=== PATIENT | male | born 1960 | race Caucasian/White ===

== ENCOUNTER 2023-11-28 | Inpatient (IN) | payer SELFPAY ==
[2023-11-28] VITALS (11 sets, daily range): BP systolic 111–174; BP diastolic 42–96
[~2023-11-28] VITALS: Ht 180.3 cm; Wt 95.5 kg
[~2023-11-28] MED LIST: PRED20 PO
[2023-11-28 01:44] LABS: BASOPHILS ABSOLUTE AUTO 0.06 K/mm3 (0.00-0.23); BASOPHILS PERCENT AUTO 1 % (0-2); EOSINOPHILS ABSOLUTE AUTO 0.31 K/mm3 (0.00-0.68); EOSINOPHILS PERCENT AUTO 4 % (0-6); Hematocrit 36.7 % (37.0-53.0); Hemoglobin 12.4 g/dL (13.5-17.5); IMMATURE GRAN ABSOLUTE AUTO 0.04 K/mm3 (0.00-0.10); IMMATURE GRAN PERCENT AUTO 1 % (0-1); LYMPHOCYTES ABSOLUTE AUTO 1.47 K/mm3 (0.84-5.20); LYMPHOCYTES PERCENT AUTO 18 % (21-46); MONOCYTES ABSOLUTE AUTO 0.58 K/mm3 (0.16-1.47); MONOCYTES PERCENT AUTO 7 % (4-13); Mean Corpuscular HGB Conc 33.8 g/dL (31.5-36.5); Mean Corpuscular Volume 86 fL (80-100); Mean Platelet Volume 10.4 fL (9.1-12.4); NEUTROPHILS ABSOLUTE AUTO 5.85 K/mm3 (1.96-9.15); NEUTROPHILS PERCENT AUTO 70 % (41-73); Platelet Count 270 K/mm3 (150-400); RDW Coefficient Variation 12.6 % (11.7-14.2); RDW Standard Deviation 39.8 fL (35.1-46.3); Red Blood Cell Count 4.27 M/mm3 (4.30-5.90); White Blood Cell Count 8.31 K/mm3 (4.00-11.30)
[2023-11-28 02:12] LABS: Albumin, Blood 2.9 g/dL (3.4-5.0); Albumin/Globulin Ratio 0.7 (0.8-1.8); Bilirubin, Total 0.2 mg/dL (0.1-1.0); Bun/Creatinine Ratio 25.7 (12.0-20.0); Calcium, Blood 8.6 mg/dL (8.5-10.1); Creatinine, Blood 1.01 mg/dL (0.60-1.20); Globulin, Blood 4.2 g/dL (2.2-4.0); Potassium, Blood 4.2 mmol/L (3.5-5.5); Total Protein, Blood 7.1 g/dL (6.4-8.2)
[2023-11-28 06:21] LABS: Anti-Xa UFH, PHA Monitoring <0.10 IU/mL; International Normalized Ratio 0.93; Prothrombin Time Results 9.8 Sec (9.7-11.5)
[2023-11-28] MEDS ORDERED: INSULANI SC (08:17)
--- NOTE | 2023-11-28 10:51 | NUR ---
AM NOTE this rn assumed care at 0700. beside report done. vital signs stable. tele sr 70s. spo2 >95% on room air. patient is alert and oriented x4. perrla. patient is able to make needs known and uses call light appropriately. neuro is intact. patient is indepedent in adls and calls if needing assistance. patient reports no chest pain/pressure, shortness of breath, or pain. see admit shift assessment for further detials. admit complete. md noel in room to discuss plans go angio, patient at this time wanted to think about it. after thinking patient did not want to have one. patients trop continued to be elevated. md noel and md chambers and this rn back into room to discuss risks vs benefit of having angio, what medical management would look like, and skilled nursing effects on health. patient and patient ( for a year), verbalized understanding and would like to think about it further. at this time patient and still discussing what the next step is to move forward. patient remains npo. heparin drip infusing at 15u/kg/hr 95kg.
--- NOTE | 2023-11-28 12:02 | NUR ---
ANGIO patient left for angio. heparin turned off at 1158, this rn informed pharmacy.
--- NOTE | 2023-11-28 17:49 | NUR ---
shift summary patient returned from angio around 1300, and had a right radial site with tr band in place. tr band has been fully recovered. slight oozing from site which appears to have stopped, no hematoma, bruising or pain. heparin drip continuing at 15u/kg/hr. see emar. patient has an accpeting doctor at [facility] in [place], but there is no bed available at this time. patient and patient aware. no acute changes. see previous notes. call light within reach.
--- NOTE | 2023-11-28 22:46 | NUR ---
UPDATE: THIS RN TO BEDSIDE AT APPROX 2140 TO REASSESS RIGHT RADIAL ANGIO SITE. SITE HAD PREVIOUSLY BEEN FLAT W/ MINIMAL BLEEDING, NONTENDER TO THE TOUCH & W/O ANY VISIBLE HEMATOMA FORMATION. SITE AT APPROX 2140 W/ VISIBLE HEMATOMA PRESENT. PULSES REMAIN PALPABLE, CAP REFILL REMAINS <3 SEC. MANUAL PRESSURE APPLIED TO SITE FOR 10 MINUTES BY THIS RN. SITE MEASURED, APPROX 3CM IN DIAMETER. FOLLOWING MANUAL PRESSURE, SITE HAS FLATTENED BUT REMAINS SLIGHTLY SWOLLEN & TENDER ON PALPATION. WHITE ARM BOARD APPLIED, PT REEDUCATED ON IMPORTANCE OF R WRIST IMMOBILITY. CALL PLACED TO MD EDITH STATES SHE WILL COME IN PERSON. AWAITING ORDERS AT THIS TIME. SENIOR SHIPPING CLERK UPDATED.
[2023-11-29 00:39] VITALS: BP 161/77
[2023-11-29 03:22] LABS: BASOPHILS ABSOLUTE AUTO 0.06 K/mm3 (0.00-0.23); BASOPHILS PERCENT AUTO 1 % (0-2); EOSINOPHILS ABSOLUTE AUTO 0.34 K/mm3 (0.00-0.68); EOSINOPHILS PERCENT AUTO 4 % (0-6); Hematocrit 37.4 % (37.0-53.0); Hemoglobin 12.5 g/dL (13.5-17.5); IMMATURE GRAN ABSOLUTE AUTO 0.03 K/mm3 (0.00-0.10); IMMATURE GRAN PERCENT AUTO 0 % (0-1); LYMPHOCYTES ABSOLUTE AUTO 2.88 K/mm3 (0.84-5.20); LYMPHOCYTES PERCENT AUTO 31 % (21-46); MONOCYTES ABSOLUTE AUTO 0.78 K/mm3 (0.16-1.47); MONOCYTES PERCENT AUTO 8 % (4-13); Mean Corpuscular HGB 28.7 pg (26.0-34.0); Mean Corpuscular HGB Conc 33.4 g/dL (31.5-36.5); Mean Corpuscular Volume 86 fL (80-100); Mean Platelet Volume 10.2 fL (9.1-12.4); NEUTROPHILS ABSOLUTE AUTO 5.25 K/mm3 (1.96-9.15); NEUTROPHILS PERCENT AUTO 56 % (41-73); Platelet Count 252 K/mm3 (150-400); RDW Coefficient Variation 12.7 % (11.7-14.2); RDW Standard Deviation 39.8 fL (35.1-46.3); Red Blood Cell Count 4.36 M/mm3 (4.30-5.90); White Blood Cell Count 9.34 K/mm3 (4.00-11.30)
[2023-11-29 03:33] VITALS: BP 156/83
[2023-11-29 03:39] LABS: International Normalized Ratio 0.97; Prothrombin Time Results 10.2 Sec (9.7-11.5)
[2023-11-29 03:42] LABS: Albumin, Blood 2.9 g/dL (3.4-5.0); Albumin/Globulin Ratio 0.7 (0.8-1.8); Bilirubin, Total 0.3 mg/dL (0.1-1.0); Bun/Creatinine Ratio 21.1 (12.0-20.0); Calcium, Blood 8.8 mg/dL (8.5-10.1); Creatinine, Blood 0.76 mg/dL (0.60-1.20); Globulin, Blood 4.1 g/dL (2.2-4.0); Magnesium, Blood 1.8 mg/dL (1.6-2.4); Potassium, Blood 3.7 mmol/L (3.5-5.5)
--- NOTE | 2023-11-29 05:49 | NUR ---
END OF SHIFT NOTE: PT HAS REMAINED ALERT, ORIENTED X4 OVERNIGHT. FLAT AFFECT NOTED PT EXPRESSES SOME ANXIETY SURROUNDING POTENTIAL CABG PROCEDURE. AGREEABLE W/ CARE PROVIDED. HR 60-70'S, SINUS ON TELE. SBP 110-160'S, DENIES CHEST PAIN/PRESSURE T/O NOC. SPO2 >95% ON RA. SEE PREVIOUS NOTE REGARDING R RADIAL ANGIO SITE; SITE REMAINS UNCHANGED W/ PULSES PALPABLE. ARM BOARD REMAINS INTACT. HEPARIN GTT CONTINUES INFUSING AT 15 U/KG/HR, MANAGED BY PHARMACY. PT INDEPENDENTLY REPOSITIONING SELF T/O THE NIGHT, CALLS APPROPRIATELY FOR ASSISTANCE W/ LINE MANAGEMENT NEEDED. AT BEDSIDE OVERNIGHT. NO OTHER NEEDS AT THIS TIME. CALL LIGHT IN REACH, BED IN LOWEST POSITION. WILL REPORT TO ONCOMING RN.
[2023-11-29 08:26] VITALS: BP 136/74
--- NOTE | 2023-11-29 08:30 | NUR ---
NURSING PCU DAYSHIFT: Assumed care of pt at approx 0700. A/O, pleasant, cooperative w/care. Denies any pain/discomfort at rest. R radial site w/mild bruising and improved hematoma site from previous shift, wrist board in place. Ambulates independently, assistance w/line management only. Tele in place, NSR, no c/o CP/pressure, SBP 130's prior to a.m. meds, no noted edema. L/S cta t/o, O2 sat 100% on RA, denies dyspnea, no noted cough. Abd SNT, BT+, voiding w/o difficulty per pt. PIVx2, hep gtt infusing per pharmacy dosing. No s/s of acute distress this a.m. Waiting for bed assignment from higher level of care hospital. S/O at bedside, plan of care discussed, questions answered. Pt and s/o deny any current needs/questions, awaiting rounding from PMD, cont to monitor for any changes.
[2023-11-29 15:06] VITALS: BP 150/72
--- NOTE | 2023-11-29 17:02 | NUR ---
NURSING PCU DAYSHIFT SUMMARY: Pt has done well t/o the shift. SBP 150's, no c/o CP/pressure, NSR. Pt ambulates independently w/assistance only required for line management. Heparin gtt continues to infuse as per pharmacy dosing. Education provided to pt and s/o regarding plan of care, continued wait for accepting higher level of care facility, and what to expect post procedure. warehouse operations manager at bedside to provide resources for pt and s/o. Pt denies any questions/needs at this time. Remains in good spirits, call light in reach, monitor until rpt is given to NOC RN.
[2023-11-29 19:15] VITALS: BP 118/51
--- NOTE | 2023-11-29 22:16 | NUR ---
ASSUMPTION OF CARE: PATIENT IS ALERT AND ORIENTED X 4, DENIES CHEST PAIN PRESSURE OR SOB. PATIENT HAS BEEN INFUSING HEPARIN, HEMATOMA ON ANGIO RRADIAL MUCH IMPROVED. VSS, AFEBRILE. AWAITING BED TRANSFER FOR NEEDED CABG. PATIENT IN THE ROOM. MUCH EDUCATION GIVEN ON MEDICATIONS INCLUDING HEPARIN GTT. NO CONCERNS FROM EITHER THE PATIENT OR THIS BRIM MOLDER.
[2023-11-30] VITALS (7 sets, daily range): BP systolic 112–163; BP diastolic 61–83
[2023-11-30 05:55] LABS: BASOPHILS ABSOLUTE AUTO 0.08 K/mm3 (0.00-0.23); BASOPHILS PERCENT AUTO 1 % (0-2); EOSINOPHILS ABSOLUTE AUTO 0.38 K/mm3 (0.00-0.68); EOSINOPHILS PERCENT AUTO 5 % (0-6); Hematocrit 36.4 % (37.0-53.0); Hemoglobin 12.2 g/dL (13.5-17.5); IMMATURE GRAN ABSOLUTE AUTO 0.04 K/mm3 (0.00-0.10); IMMATURE GRAN PERCENT AUTO 1 % (0-1); LYMPHOCYTES ABSOLUTE AUTO 2.73 K/mm3 (0.84-5.20); LYMPHOCYTES PERCENT AUTO 33 % (21-46); MONOCYTES ABSOLUTE AUTO 0.69 K/mm3 (0.16-1.47); MONOCYTES PERCENT AUTO 8 % (4-13); Mean Corpuscular HGB Conc 33.5 g/dL (31.5-36.5); Mean Corpuscular Volume 87 fL (80-100); Mean Platelet Volume 10.4 fL (9.1-12.4); NEUTROPHILS ABSOLUTE AUTO 4.39 K/mm3 (1.96-9.15); NEUTROPHILS PERCENT AUTO 53 % (41-73); Platelet Count 262 K/mm3 (150-400); RDW Coefficient Variation 12.7 % (11.7-14.2); RDW Standard Deviation 40.1 fL (35.1-46.3); White Blood Cell Count 8.31 K/mm3 (4.00-11.30)
--- NOTE | 2023-11-30 06:14 | NUR ---
NO CHANGES FROM ASSUMPTION OF CARE FOR THIS RN. CONDITION STABLE. IMPROVING SLOWLY. STILL AWAITING A BED FROM [facility]. NO CONCERNS AT THIS TIME VSS.
[2023-11-30 06:26] LABS: Albumin, Blood 2.7 g/dL (3.4-5.0); Albumin/Globulin Ratio 0.6 (0.8-1.8); Bilirubin, Total 0.3 mg/dL (0.1-1.0); Bun/Creatinine Ratio 17.8 (12.0-20.0); Calcium, Blood 9.1 mg/dL (8.5-10.1); Creatinine, Blood 0.84 mg/dL (0.60-1.20); Globulin, Blood 4.2 g/dL (2.2-4.0); Potassium, Blood 3.9 mmol/L (3.5-5.5); Total Protein, Blood 6.9 g/dL (6.4-8.2)
--- NOTE | 2023-11-30 08:03 | NUR ---
Received in room report from Catracho GUILLERMO. Patient awake in bed and is alert and oriented and is able to communicate all needs. He is independent in bed with positioning and comfort and is SBA when up ambulating to bathroom. He is on RA and sats >90%. is at bedside assisting with care. They are awaiting for open bed for CABG, she will need to go up in ambulance where ever he goes. Denies any needs. CBG 205 and will need coverage.
--- NOTE | 2023-11-30 08:13 | NUR ---
Patient has 20ga IV to RAC and is infusing Heparin at 15 units/kg/hr and tolerating well , he also has 18ga IV to LAC that has been flushed and SL'd.
--- NOTE | 2023-11-30 11:30 | NUR ---
Patient still awaiting transfer. He has been up with SBA and tolerates well. No significant changes. remains at bedside and he continues to be independnet with positioning and comfort. CBG 304 and coverage needed.
--- NOTE | 2023-11-30 15:30 | NUR ---
Patient remains awaiting bed for CABG. He continues on RA and sats >90%. He had been up to bathroom independent post calling appropriatly. He has no imediate needs or concerns. Dr Segal was by to see himand no new orders. No other significant changes with patient. remains at bedside until transfer.
--- NOTE | 2023-11-30 19:04 | NUR ---
No significant changes throughout shift. VS and ECG stable. He is independent with positioning and calls appropriately when getting up or needs. Remains on RA and sats >90%. Called there daughter per request and gave update on transfer.
--- NOTE | 2023-11-30 19:13 | NUR ---
Heparin continues at 15 units/kg/hr in RAC 20ga.
--- NOTE | 2023-11-30 22:12 | NUR ---
ASSUMPTION OF CARE: DENIES CHEST PAIN PRESSURE OR SOB AT REST. PATIENT HAS BEEN STILL INFUSING HEPARIN WITHOUT CHANGE. NO CONCERNS FRMO THIS RN. STILL AWAITING A BED FOR CABG
[2023-12-01 04:07] VITALS: BP 125/58
--- NOTE | 2023-12-01 06:32 | NUR ---
STILL NO CHANGES FROM ASSUMPTION OF CARE OR PREVIOUS SHIFT. DENIES HCEST PAIN PRESSURE OR SOB.
[2023-12-01 08:00] VITALS: BP 127/75
[2023-12-01 11:18] VITALS: BP 130/66
--- NOTE | 2023-12-01 11:43 | NUR ---
PT DENIES CP OR SOB, HE DID REPORT A BRIEF LT LOWER RIB PAIN WHEN YAWNING THIS MORNING WHICH ONLY LASTED A MINUTE OR TWO. HE IS ALERT AND ORIENTED X4. HE EXPRESSED A POOR UNDERSTANDING OF DIABETES, HE IS EDUCATED IN LENGTH ABOUT DIET MANAGEMENT THIS AM. PT DID EXPRESS THAT HE WOULD LIKE FOR ME TO CALL AND TALK TO HIS DAUGTHER JACK TO EASE HER MIND, I CALLED HER THERE WAS INITIALLY NO ANSWER, BUT SHE DID RETURN MY CALL AND HER QUESTIONS WERE ANSWERED. OTHERWISE NOT RATE CHANGES ON HEPARIN INFUSION AND NO UPDATES ON COBRA TRANSFER
[2023-12-01 13:57] VITALS: BP 130/66
--- NOTE | 2023-12-01 14:13 | NUR ---
REPORT CALLED TO SINDHU GUILLERMO AT [facility] WHO WILL ASSUME PT CARE UPON ARRIVAL
--- NOTE | 2023-12-01 15:42 | NUR ---
PT OTD WITH EMS CREW, HEPARIN INFUSING
== END 2023-12-01 15:02 | disposition short-term general hospital (02) | DRG 282 ==
LOC: ER → PCU 05:40
PROVIDERS: Internal Medicine; Student in an Organized Health Care Education/Training Program; ADMIT Student in an Organized Health Care Education/Training Program
PROC: B2111ZZ Fluoroscopy of Multiple Coronary Arteries using Low Osmolar Contrast (ICD-10-PCS; principal; 2023-11-28)
PROC: 4A023N7 Measurement of Cardiac Sampling and Pressure, Left Heart, Percutaneous Approach (ICD-10-PCS; 2023-11-28)
DX: I21.4 Non-ST elevation (NSTEMI) myocardial infarction (principal); I10 Essential (primary) hypertension; E11.9 Type 2 diabetes mellitus without complications; E78.5 Hyperlipidemia, unspecified; D64.9 Anemia, unspecified; F43.10 Post-traumatic stress disorder, unspecified; F41.9 Anxiety disorder, unspecified; F32.A Depression, unspecified; I25.10 Atherosclerotic heart disease of native coronary artery without angina pectoris; Z28.21 Immunization not carried out because of patient refusal
CPT/HCPCS: 36415; 71046; 76937; 80053; 82947; 83036; 83690; 83735; 83880; 84484; 85025; 85520; 85610; 93005; 93010; 93306; 93454; 96374-59; 99152; 99153; 99285-25; A9270; C1769; C1887; C1894; J1644; J1815; J2250; J3010; J7030; J7050; J7120; Q9967

== ENCOUNTER 2023-12-16 19:00 | Inpatient (IN) | payer SELFPAY ==
[~2023-12-16] VITALS: Ht 180.3 cm; Wt 99.7 kg
[~2023-12-16 19:00] MED LIST changes: +INSULANI SC
[2023-12-16] MEDS ORDERED: Aspir 8181 MG PO (19:23)
[2023-12-16] MEDS ORDERED: ATOR40TA PO (19:23)
[2023-12-16] MEDS ORDERED: PLAVIX75 MG PO (19:23)
[2023-12-16] MEDS ORDERED: METOPROLOL TART25 MG PO (19:24)
[2023-12-16] MEDS ORDERED: OXYC5 PO (19:24)
[2023-12-16] MEDS ORDERED: LOSARTAN POTASS25 M2 PO (19:24)
[2023-12-16] MEDS ORDERED: SITA25T2 PO (19:25)
[2023-12-16 19:34] LABS: BASOPHILS ABSOLUTE AUTO 0.04 K/mm3 (0.00-0.23); BASOPHILS PERCENT AUTO 0 % (0-2); EOSINOPHILS PERCENT AUTO 2 % (0-6); Hematocrit 29.8 % (37.0-53.0); Hemoglobin 9.4 g/dL (13.5-17.5); IMMATURE GRAN ABSOLUTE AUTO 0.03 K/mm3 (0.00-0.10); IMMATURE GRAN PERCENT AUTO 0 % (0-1); LYMPHOCYTES ABSOLUTE AUTO 1.09 K/mm3 (0.84-5.20); LYMPHOCYTES PERCENT AUTO 9 % (21-46); MONOCYTES ABSOLUTE AUTO 1.09 K/mm3 (0.16-1.47); MONOCYTES PERCENT AUTO 9 % (4-13); Mean Corpuscular HGB 28.1 pg (26.0-34.0); Mean Corpuscular HGB Conc 31.5 g/dL (31.5-36.5); Mean Corpuscular Volume 89 fL (80-100); Mean Platelet Volume 9.5 fL (9.1-12.4); NEUTROPHILS ABSOLUTE AUTO 10.26 K/mm3 (1.96-9.15); NEUTROPHILS PERCENT AUTO 81 % (41-73); Platelet Count 643 K/mm3 (150-400); RDW Coefficient Variation 14.5 % (11.7-14.2); RDW Standard Deviation 46.5 fL (35.1-46.3); Red Blood Cell Count 3.35 M/mm3 (4.30-5.90); White Blood Cell Count 12.71 K/mm3 (4.00-11.30)
[2023-12-16 19:50] LABS: Albumin/Globulin Ratio 0.6 (0.8-1.8); Bilirubin, Total 0.5 mg/dL (0.1-1.0); Bun/Creatinine Ratio 24.2 (12.0-20.0); Calcium, Blood 9.3 mg/dL (8.5-10.1); Creatinine, Blood 0.87 mg/dL (0.60-1.20); Globulin, Blood 4.9 g/dL (2.2-4.0); Potassium, Blood 4.5 mmol/L (3.5-5.5); Total Protein, Blood 7.9 g/dL (6.4-8.2)
[2023-12-16 20:42] LABS: Influenza A, PCR NEGATIVE (NEGATIVE); Influenza B, PCR NEGATIVE (NEGATIVE); Resp Syncytial Virus, PCR NEGATIVE (NEGATIVE); SARS-Cov-2 (COVID-19) PCR, MMC NEGATIVE (NEGATIVE)
[2023-12-16] MEDS ORDERED: Furosemide 10 MG / ML 2ML Vial IV ONE (21:00)
[2023-12-16] MEDS ORDERED: Ondansetron HCl 2 MG / ML 2ML Vial IV PRN (21:05)
[2023-12-16] MEDS ORDERED: Acetaminophen 325 MG TABLET PO PRN (21:05)
[2023-12-16] MEDS ORDERED: FLU VACC QS2023-24(6MOS UP)/PF 60 MCG/0.5 ML SYRINGE IM SCH (21:10)
[2023-12-16] MEDS ORDERED: Furosemide 10 MG/ML 4ML Vial ONE (21:11)
[2023-12-16] MEDS ORDERED: OxyCODONE HCL 5 MG TAB PO PRN (21:40)
[2023-12-16] MEDS ORDERED: Furosemide 10 MG/ML 4ML Vial IV SCH (22:00)
[2023-12-16] MEDS ORDERED: Metoprolol Tartrate 25 MG Tab PO SCH (22:00)
[2023-12-16 22:41] VITALS: BP 130/69
[2023-12-16 23:00] VITALS: BP 128/62
--- NOTE | 2023-12-16 23:29 | NUR ---
ARRIVAL TO UNIT: AFTER RECEIVING REPORT FROM ED RN, PATIENT ARRIVED TO UNIT VIA ED RSAN ANTONIO AT APPROX 2230. PATIENT ALERT AND ORIENTED X4, ABLE TO STAND AND TRANSFER FROM ED GURSAN ANTONIO TO SIT ON SIDE OF HOSPITAL BED. PATIENT AMBULATED TO RESTROOM TO VOID WITH STAND BY ASSIST FOR LINE, DEVICE MANAGEMENT. X1 UNMEASURED VOID, THIS RN PROVIDED EDUCATION REGARDING USE OF URINAL OR HAT FOR ACCURATE I/0's. TELEMETRY SHOWING SINUS BBB 80s. BP STABLE. RECEIVED DOSE OF PO METOPROLOL PRIOR TO ARRIVAL TO UNIT. REPORTS CHEST PAIN WITH COUGHING DUE TO CABG ON 12/02/23. MIDLINE STERNAL INCISION FROM CABG, HEALING WELL. X4 OLD DRAIN SITES WITH GAUZE AND TAPE DRESSING, CHANGED BY THIS RN. SEROSANGUINOUS DRAINAGE NOTED. ON BASELINE 2L VIA NASAL CANNULA, SATs >90%. TACHYPNEA AT REST, RESPIRATIONS 22-26. EXPERIENCES INCREASED SHORTNESS OF BREATH WITH LONGER CONVERSATION, WITH MOBILITY, AND WITH LYING FLAT. HEAD OF BED ELEVATED >30 DEGREES. CALL LIGHT IN REACH.
[2023-12-17] MEDS ORDERED: Calcium Carbonate 500 MG Tab Chew PO PRN (01:35)
--- NOTE | 2023-12-17 01:39 | NUR ---
ACID REFLUX PAIN PATIENT CONTINUING TO REPORT UNRESOLVED ACID REFLUX PAIN, REQUESTING MEDICATION FOR RELIEF. THIS RN CONTACTED MD BUNN. RECEIVED ORDER FOR TUMS AND GI COCKTAIL. WILL ADMINISTER PER EMAR.
[2023-12-17] MEDS ORDERED: Mag Hydrox/Al Hydrox/Simeth 72 ML,Lidocaine 2% Viscous Soln 36 ML,Atropine/Scopalam/Hyo... PO PRN (01:40)
[2023-12-17 03:24] VITALS: BP 135/68
[2023-12-17 04:14] LABS: Bun/Creatinine Ratio 25.8 (12.0-20.0); Calcium, Blood 8.5 mg/dL (8.5-10.1); Creatinine, Blood 0.89 mg/dL (0.60-1.20); Potassium, Blood 4.1 mmol/L (3.5-5.5)
--- NOTE | 2023-12-17 06:10 | NUR ---
SHIFT SUMMARY: NO ACUTE CHANGES SINCE ARRIVAL TO UNIT. PATIENT SLEPT THROUGHOUT. TELEMETRY SHOWING SINUS BBB 70s. BP STABLE, SBP 120s-130s. REMAINS ON 2L VIA NASAL CANNULA, SATs >90%. SHORTNESS OF BREATH AT REST IMPROVED, RR 18-20. CONTINUES TO EXPERIENCE DYSPNEA WITH MOBILITY. ACID REFLUX DISCOMFORT MANAGED PER EMAR WITH TUMS AND GI COCKTAIL. IS A STAND BY ASSIST TO RESTROOM. VOIDING. X1 EPISODE OF LOOSE STOOL. CALL LIGHT IN REACH. WILL REPORT TO ONCOMING RN.
[2023-12-17] MEDS ORDERED: Insulin Human Lispro 100 Units/ML 3ML Syringe SC SCH (07:30)
[2023-12-17 08:13] VITALS: BP 139/71
[2023-12-17] MEDS ORDERED: Enoxaparin 40 MG/0.4 ML SYR SC SCH (09:00)
[2023-12-17] MEDS ORDERED: Clopidogrel Bisulfate 75 MG Tab PO SCH (09:00)
[2023-12-17] MEDS ORDERED: Losartan Potassium 25 MG Tab PO SCH (09:00)
[2023-12-17] MEDS ORDERED: Aspirin 81 MG TabEC PO SCH (09:00)
[2023-12-17 11:30] VITALS: BP 125/70
[2023-12-17 15:35] VITALS: BP 130/66
--- NOTE | 2023-12-17 18:27 | NUR ---
SHIFT SUMMARY PT A/OX 4 AND COOPERATIVE OF CARE. PT ABLE TO EXPRESS NEEDS AND CALLS APPROPIATELY. PT VSS THROUGHOUT SHIFT. PT WAS ON 2L NC AT BEGINNING OF SHIFT, TITRATED TO RA. SATS REMAIN STABLE IN THE 90'S ON RA. NO REPORT OF SOB/DYSPNEA. NO REPORT OF CHEST PAIN/PRESSURE THROUGHOUT SHIFT. PT INDEPENDENT IN BED AND IN ROOM, TOLERATED WELL. PT WAS AT BEDSIDE TODAY, UPDATED ON PT STATUS AND TREATMENT.
[2023-12-17 19:50] VITALS: BP 130/73
[2023-12-17] MEDS ORDERED: Atorvastatin 40 MG Tab PO SCH (21:00)
[2023-12-17 23:36] VITALS: BP 121/64
[2023-12-18 03:24] VITALS: BP 154/75
--- NOTE | 2023-12-18 04:13 | NUR ---
SHIFT SUMMARY NO ACUTE CHANGES THIS SHIFT. VSS. AXO. ON RA WHILE AWAKE, WAS PLACED ON 2LNC WHILE SLEEPING DUE TO SPO2 88%. NO CP THIS SHIFT PER PT REPORT. CONTINUES TO DIURESE SUCCESFULLY WITH VOIDS >1000MLS. NO BM'S THIS SHFT. PT HOPEFUL FOR DC TODAY. USES CALL LIGHT APPROPRIATELY.
[2023-12-18 07:34] VITALS: BP 150/73
[2023-12-18 08:24] LABS: Albumin, Blood 2.8 g/dL (3.4-5.0); Anion Gap 3 mmol/L (6-16); Blood Urea Nitrogen 17 mg/dL (8-24); CO2, Blood 26 mmol/L (21-32); Calcium, Blood 8.6 mg/dL (8.5-10.1); Chloride, Blood 111 mmol/L (98-108); Creatinine, Blood 0.95 mg/dL (0.60-1.20); Glomerular Filtration Rate 91 (60-); Glucose, Blood 143 mg/dL (70-99); Phosphorus, Blood 3.3 mg/dL (2.5-4.9); Potassium, Blood 3.8 mmol/L (3.5-5.5); Sodium, Blood 140 mmol/L (136-145)
[2023-12-18] MEDS ORDERED: BUME1 PO (11:12)
[2023-12-18] MEDS ORDERED: POTA10T PO (11:13)
--- NOTE | 2023-12-18 12:32 | NUR ---
DISCHARGE UPDATE DISCHARGE PACKET GONVE OVER WITH PT AND PT AT 1225. PT DISHCARGED AT 1235 VIA WHEELCHAIR AND ON RA. PT ABLE TO TRANSFER SLEF TO AND FROM WHEELCHAIR ON HIS OWN, TOLERATED WELL. PT PERSONAL BELONGINGS IN BAGS AND WITH AT TIME OF DISCHARGE. DISCHARGE PACKET WITH AT TIME OF DISCHARGE.
== END 2023-12-18 12:38 | disposition home or self-care (01) | DRG 291 ==
LOC: ER 19:00 → MEDS 19:01 → PCU 21:28
PROVIDERS: Emergency Medicine; Family Medicine; ADMIT Internal Medicine
DX: I11.0 Hypertensive heart disease with heart failure (principal); I50.31 Acute diastolic (congestive) heart failure; J96.01 Acute respiratory failure with hypoxia; I25.10 Atherosclerotic heart disease of native coronary artery without angina pectoris; E11.9 Type 2 diabetes mellitus without complications; Z11.52 Encounter for screening for COVID-19; F41.8 Other specified anxiety disorders; D72.828 Other elevated white blood cell count; F43.10 Post-traumatic stress disorder, unspecified; Z95.1 Presence of aortocoronary bypass graft; Z87.891 Personal history of nicotine dependence; Z88.8 Allergy status to other drugs, medicaments and biological substances; Z79.02 Long term (current) use of antithrombotics/antiplatelets; Z79.899 Other long term (current) drug therapy
CPT/HCPCS: 0241U; 36415; 71045; 80048; 80053; 80069; 82947; 83880; 84484; 85025; 93005; 93010; 94762; 96374; 99285-25; A9270; J1650; J1940

== ENCOUNTER 2024-07-01 00:40 | Emergency (ER) | payer OTHER ==
[~2024-07-01] VITALS: Ht 180.3 cm; Wt 99.3 kg
[~2024-07-01 00:40] MED LIST changes: +ATOR40TA PO; +Aspir 8181 MG PO; +BUME1 PO; +LOSARTAN POTASS25 M2 PO; +METOPROLOL TART25 MG PO; +OXYC5 PO; +PLAVIX75 MG PO; +POTA10T PO; +SITA25T2 PO
[2024-07-01 00:46] VITALS: BP 150/81
[2024-07-01] MEDS ORDERED: Ibuprofen600 MG PO (05:10)
[2024-07-01] MEDS ORDERED: Ibuprofen 600 MG Tab PO ONE (05:10)
[2024-07-01] MEDS ORDERED: DELTASONE20 MG PO (05:10)
[2024-07-01] MEDS ORDERED: PredniSONE 20 MG Tab PO ONE (05:10)
== END 2024-07-01 05:22 | disposition home or self-care (01) ==
LOC: ER 00:40
DX: S46.011A Strain of muscle(s) and tendon(s) of the rotator cuff of right shoulder, initial encounter (principal); M19.011 Primary osteoarthritis, right shoulder; E11.9 Type 2 diabetes mellitus without complications; X50.0XXA Overexertion from strenuous movement or load, initial encounter; Z68.30 Body mass index [BMI] 30.0-30.9, adult; Z79.02 Long term (current) use of antithrombotics/antiplatelets; Z79.4 Long term (current) use of insulin; Z79.82 Long term (current) use of aspirin; Z79.899 Other long term (current) drug therapy; Z79.52 Long term (current) use of systemic steroids; Z88.8 Allergy status to other drugs, medicaments and biological substances
CPT/HCPCS: 73060; 99283-25; A9270; J7512

== ENCOUNTER → 2025-11-06 | Outpatient (CLI) | payer OTHER ==
[~2025-11-06] MED LIST changes: +DELTASONE20 MG PO; +Ibuprofen600 MG PO; +ONDA4 PO
[2025-11-06 17:55] LABS: BASOPHILS ABSOLUTE AUTO 0.07 K/mm3 (0.00-0.23); BASOPHILS PERCENT AUTO 1 % (0-2); EOSINOPHILS ABSOLUTE AUTO 0.25 K/mm3 (0.00-0.68); EOSINOPHILS PERCENT AUTO 4 % (0-6); Hematocrit 44.0 % (37.0-53.0); Hemoglobin 14.7 g/dL (13.5-17.5); IMMATURE GRAN ABSOLUTE AUTO 0.02 K/mm3 (0.00-0.10); IMMATURE GRAN PERCENT AUTO 0 % (0-1); LYMPHOCYTES ABSOLUTE AUTO 2.07 K/mm3 (0.84-5.20); LYMPHOCYTES PERCENT AUTO 34 % (21-46); MONOCYTES ABSOLUTE AUTO 0.61 K/mm3 (0.16-1.47); MONOCYTES PERCENT AUTO 10 % (4-13); Mean Corpuscular HGB Conc 33.4 g/dL (31.5-36.5); Mean Corpuscular Volume 87 fL (80-100); NEUTROPHILS ABSOLUTE AUTO 3.12 K/mm3 (1.96-9.15); NEUTROPHILS PERCENT AUTO 51 % (41-73); NRBC ABSOLUTE 0.00 K/mm3 (0.00-0.02); NRBC Auto 0.0 /100 WBC (0.0-0.2); Platelet Count 297 K/mm3 (150-400); RDW Coefficient Variation 13.5 % (11.7-14.2); RDW Standard Deviation 42.6 fL (35.1-46.3)
[2025-11-06 18:05] LABS: Alanine Aminotransfer (ALT/SGP 24.0 U/L (12-78); Albumin, Blood 3.0 g/dL (3.4-5.0); Albumin/Globulin Ratio 0.6 (0.8-1.8); Anion Gap 15.0 mmol/L (3-11); Aspartate Aminotrans (AST/SGOT 21.0 U/L (12-37); Bilirubin, Total 0.2 mg/dL (0.1-1.0); Blood Urea Nitrogen 33.0 mg/dL (8-24); CO2, Blood 22.0 mmol/L (21-32); Calcium, Blood 9.2 mg/dL (8.5-10.1); Chloride, Blood 103.0 mmol/L (98-108); Creatinine, Blood 1.35 mg/dL (0.60-1.20); Globulin, Blood 4.9 g/dL (2.2-4.0); Glucose, Blood 189.0 mg/dL (70-99); Potassium, Blood 4.5 mmol/L (3.5-5.5); Sodium, Blood 135.0 mmol/L (136-145); Total Protein, Blood 7.9 g/dL (6.4-8.2)
== END ==
LOC: LAB SHORT 17:50 → LAB 17:50
PROVIDERS: Physician Assistant Medical
DX: E11.21 Type 2 diabetes mellitus with diabetic nephropathy (principal); Z79.4 Long term (current) use of insulin
CPT/HCPCS: 80053; 83036; 85025